=== PATIENT | female | born 1985 | race American Indian/Alaskan Native ===

== ENCOUNTER 2018-01-09 23:18 | Emergency (ER) | payer MEDICAID ==
[2018-01-09 23:31] VITALS: BP 124/87
== END 2018-01-09 23:50 | disposition left against medical advice (07) ==
LOC: ED 23:18
DX: Z04.1 Encounter for examination and observation following transport accident (principal); Z53.21 Procedure and treatment not carried out due to patient leaving prior to being seen by health care provider